=== PATIENT | male | born 1990 | race African-American/Black ===

== ENCOUNTER 2018-04-26 09:39 | Emergency (ER) | payer OTHER ==
[~2018-04-26] VITALS: Ht 180.3 cm; Wt 77.1 kg
[2018-04-26] MEDS ORDERED: IV NORMAL SALINE 1000 ML BAG IV ONE (10:00)
--- NOTE | 2018-04-26 10:09 | NUR ---
patient arrived via EMS. Per [facility] medic patient is known to be non verbal. However at about the 30 minute doug (during stay in ER), patient opened his eyes and stated that his name is Dash and he does not want the IV or any tests done. he even refused food and water/juice. I notified Dr Thapa. patient asked me to remove the IV and monitoring device because he wants to leave now.
--- NOTE | 2018-04-26 10:23 | NUR ---
patient left the hospital, walking with steady gait. Was able to provide his name and . States "What can I do to not come to a hospital again?". i told him to verbalize his thoughts to the [facility].
--- NOTE | 2018-04-26 10:24 | NUR ---
IV removed. Catheter intact and site benign. Pressure and 4x4 gauze applied to site. No bleeding noted.
--- NOTE | 2018-04-26 10:24 | NUR ---
Patient given verbal discharge instructions. Patient verbalizes understanding of instructions. Patient is ambulatory with steady gait. Refuses offer of [facility] placement.
[2018-04-26 10:27] VITALS: BP 119/78
== END 2018-04-26 10:27 | disposition left against medical advice (07) ==
LOC: ER 09:39 → EDBD 09:39 → ER 10:27
DX: R47.9 Unspecified speech disturbances (principal)
CPT/HCPCS: 93005; 99284; A4663; J7030